=== PATIENT | female | born 1960 | race Caucasian/White ===

== ENCOUNTER → 2021-03-18 17:08 | Outpatient (CLI) | payer MEDICARE, OTHER, BC, SELFPAY ==
--- NOTE | ~2021-03-18 | XR_ITS ---
XR cervical spine min 6V 03/18/2021 19:01 Indication: Cervicalgia Procedure: 7 views of the cervical spine Comparison: No prior studies for comparison. Findings: No fracture or traumatic malalignment. There is surgical fusion at C4-C6. There are spinal leads, superior extent at the C2-3 level. There is moderate degenerative disc disease and endplate hy pertrophy at C6-7. No prevertebral soft tissue abnormality. Moderate multilevel facet and uncinate hy pertrophy. Lung apices are normal. Odontoid process within normal limits. Impression: 1: Moderate cervical spondylosis with fusion at C4-C6. Reviewed, dictated and finalized at location A. ET CUTTER Impression: 1: Moderate cervical spondylosis with fusion at C4-C6.
== END ==
PROVIDERS: Visit Provider Nurse Practitioner Adult Health
DX: M47.812 Spondylosis without myelopathy or radiculopathy, cervical region (principal)
CPT/HCPCS: 72052